=== PATIENT | female | born 1945 | race Caucasian/White ===

== ENCOUNTER → 2017-05-13 | Outpatient (REF) | payer MEDICARE, OTHER ==
[2017-05-13 15:41] LABS: CALCIUM LEVEL 9.5 MG/DL (8.8-10.2); CREATININE FOR GFR 0.98 MG/DL (0.55-1.02); GLOMERULAR FILTRATION RATE 59.4 (>39); POTASSIUM SERUM 3.7 MEQ/L (3.5-5.1)
== END ==
LOC: M LABDRAW1 11:30
PROVIDERS: ATTEND Internal Medicine Cardiovascular Disease
DX: I10 Essential (primary) hypertension (principal); E11.9 Type 2 diabetes mellitus without complications

== ENCOUNTER → 2018-07-17 | Outpatient (REF) | payer MEDICARE, OTHER ==
[2018-07-17 12:15] LABS: HEMATOCRIT 37.9 % (36.0-47.0); HEMOGLOBIN 12.6 g/dl (12.0-15.5); MEAN CORPUSCULAR HEMOGLOBIN 30.5 pg (27.0-33.0); MEAN CORPUSCULAR HGB CONC 33.2 g/dl (32.0-36.5); MEAN CORPUSCULAR VOLUME 91.8 fl (80.0-96.0); PLATELET COUNT, AUTOMATED 226 10^3/uL (150-450); RED BLOOD COUNT 4.13 10^6/uL (4.00-5.40); RED CELL DISTRIBUTION WIDTH 12.8 % (11.5-14.5); WHITE BLOOD COUNT 10.4 10^3/uL (4.0-10.0)
[2018-07-17 12:21] LABS: ANION GAP 8 MEQ/L (8-16); BLOOD UREA NITROGEN 23 MG/DL (7-18); CALCIUM LEVEL 9.3 MG/DL (8.8-10.2); CARBON DIOXIDE LEVEL 30 MEQ/L (21-32); CHLORIDE LEVEL 103 MEQ/L (98-107); CHOLESTEROL LEVEL 216 MG/DL (<200); CHOLESTEROL RISK RATIO 3.927 (<5); CREATININE FOR GFR 1.06 MG/DL (0.55-1.30); GLOMERULAR FILTRATION RATE 54.1 (>39); GLUCOSE, FASTING 121 MG/DL (70-100); HDL CHOLESTEROL 55 MG/DL (>40); LDL CHOLESTEROL 127.6 MG/DL (<100); NON-HDL-C 161 MG/DL; POTASSIUM SERUM 4.1 MEQ/L (3.5-5.1); SODIUM LEVEL 141 MEQ/L (136-145); TRIGLYCERIDES LEVEL 167 MG/DL (<150)
[2018-07-17 12:55] LABS: ESTIMATED AVERAGE GLUCOSE 126 MG/DL (60-110)
== END ==
LOC: M LABDRAW1 10:13
DX: I10 Essential (primary) hypertension (principal); I25.10 Atherosclerotic heart disease of native coronary artery without angina pectoris; E11.9 Type 2 diabetes mellitus without complications
CPT/HCPCS: 83036

== ENCOUNTER → 2020-10-07 | Outpatient (CLI) | payer MEDICARE, OTHER ==
[2020-10-07 13:57] LABS: BLOOD UREA NITROGEN 19 MG/DL (7-18); CALCIUM LEVEL 9.2 MG/DL (8.8-10.2); CARBON DIOXIDE LEVEL 31 MEQ/L (21-32); CHLORIDE LEVEL 102 MEQ/L (98-107); CREATININE FOR GFR 0.89 MG/DL (0.55-1.30); GLOMERULAR FILTRATION RATE > 60.0 (>39); GLUCOSE, FASTING 140 MG/DL (70-100); POTASSIUM SERUM 3.5 MEQ/L (3.5-5.1); SODIUM LEVEL 139 MEQ/L (136-145)
== END ==
LOC: M WUC 10:14
PROVIDERS: ATTEND Physician Assistant
DX: I10 Essential (primary) hypertension (principal)

== ENCOUNTER → 2020-10-24 | Outpatient (CLI) | payer MEDICARE, OTHER ==
[2020-10-24 16:58] LABS: CALCIUM LEVEL 9.1 MG/DL (8.8-10.2); CREATININE FOR GFR 1.01 MG/DL (0.55-1.30); GLOMERULAR FILTRATION RATE 56.7 (>39); POTASSIUM SERUM 3.6 MEQ/L (3.5-5.1)
== END ==
LOC: M WUC 14:07
PROVIDERS: ATTEND Physician Assistant
DX: I10 Essential (primary) hypertension (principal)

== ENCOUNTER → 2021-02-23 | Outpatient (CLI) | payer MEDICARE, OTHER ==
--- NOTE | 2021-02-23 16:00 | REP ---
INDICATION: CLAUDICATION. COMPARISON: None. TECHNIQUE: Bilateral lower extremity arterial Doppler ultrasound: FINDINGS: Ankle brachial indices could not be carried out due to patient inability to tolerate compression. Mild plaquing is seen bilaterally. Calcified vessels are noted throughout the lower extremities. Relatively high velocities are observed diffusely but no high-grade stenosis or occlusion is seen on either side. Biphasic arterial Doppler waveforms are noted throughout both lower extremity arteries. Right lower extremity arterial Doppler velocity chart: Right EVAPORATOR HELPER PSV 198 cm/S Profundal 187 Proximal SFA 179 Mid SFA 207 Distal SFA 184 Popliteal 90 Proximal LUCIEN 79 Tibial-peroneal trunk 102 Proximal BUSINESS MANAGER COLLEGE [employer] UNIVERSITY 113 Distal BUSINESS MANAGER COLLEGE OR UNIVERSITY 51 Distal LUCIEN 103 Left lower extremity arterial Doppler velocity chart: Left EVAPORATOR HELPER PSV 176 cm/S Profundal 183 Proximal SFA 170 Mid SFA 202 Distal SFA 179 Popliteal 95 Proximal LUCIEN 96 Tibial-peroneal trunk 67 Proximal BUSINESS MANAGER COLLEGE OR UNIVERSITY 47 Distal BUSINESS MANAGER COLLEGE OR UNIVERSITY 59 Distal LUCIEN 102 IMPRESSION: Moderate atherosclerotic changes. No high-grade stenosis or occlusion seen. <Electronically signed by Feliciano Hartley > 02/23/21 2728
== END ==
LOC: M RAD 13:33
PROVIDERS: ATTEND Physician Assistant
DX: I73.9 Peripheral vascular disease, unspecified (principal)

== ENCOUNTER → 2021-05-29 | Outpatient (CLI) | payer MEDICARE, OTHER ==
[2021-05-29 15:58] LABS: APPEARANCE, URINE CLOUDY (CLEAR); BACTERIA, URINE AUTO 3+ (NEGATIVE); BILIRUBIN, URINE AUTO NEGATIVE (NEGATIVE); BLOOD, URINE BLOOD NEGATIVE (NEGATIVE); COLOR, URINE YELLOW (YELLOW); GLUCOSE, URINE (UA) AUTO NEGATIVE (NEGATIVE); KETONE, URINE AUTO NEGATIVE (NEGATIVE); LEUKOCYTE ESTERASE, URINE AUTO 3+ (NEGATIVE); NITRITE, URINE AUTO POSITIVE (NEGATIVE); PROTEIN, URINE AUTO NEGATIVE (NEGATIVE); RBC, URINE AUTO 6 /HPF (0-3); SPECIFIC GRAVITY URINE AUTO 1.016 (1.002-1.035); SQUAMOUS EPITHELIAL CELL UR AU 2 /HPF (0-6); TRANSITIONAL EPITHELIAL AUTO 1 /HPF; UROBILINOGEN, URINE AUTO 0.2 mg/dL (0.0-2.0); WBC, URINE AUTO 63 /HPF (0-3)
[2021-05-29 16:02] LABS: BASO % 0.2 % (0.0-1.0); EOS # 0.2 10^3/uL (0.0-0.5); EOS % 1.6 % (0.0-3.0); HEMATOCRIT 39.6 % (36.0-47.0); HEMOGLOBIN 13.2 g/dl (12.0-15.5); LYMPH # 2.1 10^3/uL (1.5-5.0); LYMPH % 19.5 % (24.0-44.0); MEAN CORPUSCULAR HEMOGLOBIN 30.8 pg (27.0-33.0); MEAN CORPUSCULAR HGB CONC 33.3 g/dl (32.0-36.5); MEAN CORPUSCULAR VOLUME 92.5 fl (80.0-96.0); MONO # 0.8 10^3/uL (0.0-0.8); MONO % 7.4 % (2.0-8.0); NEUTROPHILS # 7.7 10^3/uL (1.5-8.5); NEUTROPHILS % 70.8 % (36.0-66.0); PLATELET COUNT, AUTOMATED 205 10^3/uL (150-450); RED BLOOD COUNT 4.28 10^6/uL (4.00-5.40); WHITE BLOOD COUNT 10.9 10^3/uL (4.0-10.0)
[2021-05-29 16:26] LABS: HEMOGLOBIN A1c 6.5 %
[2021-05-29 16:39] LABS: ALBUMIN 4.2 GM/DL (3.2-5.2); BILIRUBIN,TOTAL 0.6 MG/DL (0.2-1.0); CALCIUM LEVEL 8.5 MG/DL (8.8-10.2); CHOLESTEROL RISK RATIO 1.565 (<5); CREATININE FOR GFR 1.09 MG/DL (0.55-1.30); MAU/CREAT RATIO 14.5 MCG/MG (0.0-30.0); POTASSIUM SERUM 3.9 MEQ/L (3.5-5.1); THYROID STIMULATING HORMONE 1.5 uIU/ML (0.358-3.740); THYROXINE (T4) 8.5 UG/DL (4.5-12.0); TOTAL 25(OH) VITAMIN D 26.3 NG/ML (30.0-100.0); TOTAL PROTEIN 7.5 GM/DL (6.4-8.2); URIC ACID 6.5 MG/DL (2.6-6.0)
[2021-05-31 16:08] LABS: Lyme Disease IgG/IgM Antibodie <0.91 ISR (0.00-0.90); Lyme Disease IgM Ab Quantitati <0.80 index (0.00-0.79)
== END ==
LOC: M WUC 13:52
PROVIDERS: ATTEND Family Medicine
DX: I10 Essential (primary) hypertension (principal); E78.5 Hyperlipidemia, unspecified; E11.40 Type 2 diabetes mellitus with diabetic neuropathy, unspecified; M51.36 Other intervertebral disc degeneration, lumbar region; M50.00 Cervical disc disorder with myelopathy, unspecified cervical region; Z79.899 Other long term (current) drug therapy

== ENCOUNTER → 2022-02-09 | Outpatient (CLI) | payer MEDICARE, OTHER ==
[2022-02-09 13:50] LABS: BASO % 0.4 % (0.0-1.0); EOS # 0.2 10^3/uL (0.0-0.5); EOS % 2.9 % (0.0-3.0); HEMATOCRIT 33.1 % (36.0-47.0); LYMPH # 1.9 10^3/uL (1.5-5.0); LYMPH % 25.2 % (24.0-44.0); MEAN CORPUSCULAR HEMOGLOBIN 30.5 pg (27.0-33.0); MEAN CORPUSCULAR HGB CONC 33.2 g/dl (32.0-36.5); MEAN CORPUSCULAR VOLUME 91.7 fl (80.0-96.0); MONO # 0.5 10^3/uL (0.0-0.8); NEUTROPHILS # 4.9 10^3/uL (1.5-8.5); PLATELET COUNT, AUTOMATED 229 10^3/uL (150-450); RED BLOOD COUNT 3.61 10^6/uL (4.00-5.40); WHITE BLOOD COUNT 7.7 10^3/uL (4.0-10.0)
[2022-02-09 13:58] LABS: APPEARANCE, URINE HAZY (CLEAR); BACTERIA, URINE AUTO 2+ (NEGATIVE); BILIRUBIN, URINE AUTO NEGATIVE (NEGATIVE); BLOOD, URINE BLOOD NEGATIVE (NEGATIVE); COLOR, URINE YELLOW (YELLOW); GLUCOSE, URINE (UA) AUTO NEGATIVE (NEGATIVE); KETONE, URINE AUTO NEGATIVE (NEGATIVE); LEUKOCYTE ESTERASE, URINE AUTO 2+ (NEGATIVE); MUCUS, URINE SMALL (NEGATIVE); NITRITE, URINE AUTO NEGATIVE (NEGATIVE); PROTEIN, URINE AUTO NEGATIVE (NEGATIVE); RBC, URINE AUTO 1 /HPF (0-3); SPECIFIC GRAVITY URINE AUTO 1.016 (1.002-1.035); SQUAMOUS EPITHELIAL CELL UR AU 1 /HPF (0-6); UROBILINOGEN, URINE AUTO 0.2 mg/dL (0.0-2.0); WBC, URINE AUTO 26 /HPF (0-3)
[2022-02-09 14:13] LABS: ALBUMIN 3.5 GM/DL (3.2-5.2); ALT/SGPT 35 U/L (12-78); BILIRUBIN,TOTAL 0.4 MG/DL (0.2-1.0); BLOOD UREA NITROGEN 29 MG/DL (7-18); CALCIUM LEVEL 8.7 MG/DL (8.8-10.2); CARBON DIOXIDE LEVEL 29 MEQ/L (21-32); CHLORIDE LEVEL 105 MEQ/L (98-107); CHOLESTEROL LEVEL 112 MG/DL (<200); CHOLESTEROL RISK RATIO 2.074 (<5); CREATININE FOR GFR 1.25 MG/DL (0.55-1.30); FREE T4 0.95 NG/DL (0.76-1.46); GLOMERULAR FILTRATION RATE 44.2 (>39); GLUCOSE, FASTING 137 MG/DL (70-100); HDL CHOLESTEROL 54 MG/DL (>40); LDL CHOLESTEROL 28 MG/DL (<100); NON-HDL-C 58 MG/DL; POTASSIUM SERUM 3.5 MEQ/L (3.5-5.1); SODIUM LEVEL 140 MEQ/L (136-145); TOTAL PROTEIN 6.7 GM/DL (6.4-8.2); TRIGLYCERIDES LEVEL 149 MG/DL (<150)
[2022-02-09 14:20] LABS: MALB URINE SIEMENS 31.4 MG/L; MAU/CREAT RATIO 18.9 MCG/MG (0.0-30.0)
[2022-02-09 14:21] LABS: TOTAL 25(OH) VITAMIN D 89.4 NG/ML (30.0-100.0)
[2022-02-09 14:22] LABS: VITAMIN B12 LEVEL > 2000 PG/ML
[2022-02-09 14:23] LABS: FOLATE 9.7 NG/ML
[2022-02-13 09:47] LABS: ALBUMIN 3.75 GM/DL (3.29-5.55); ALBUMIN % 55.9 % (55.8-66.1); ALPHA-1-GLOBULIN % 4.9 % (2.9-4.9); ALPHA-1-GLOBULINS 0.33 GM/DL (0.17-0.41); ALPHA-2-GLOBULINS 0.78 GM/DL (0.42-0.99); ALPHA-2-GLOBULINS % 11.7 % (7.1-11.8); BETA-1-GLOBULINS 0.46 GM/DL (0.28-0.60); BETA-1-GLOBULINS % 6.8 % (4.7-7.2)
[2022-02-13 09:48] LABS: GAMMA GLOBULIN % 14.7 % (11.1-18.8); GAMMA GLOBULINS 0.98 GM/DL (0.65-1.58)
== END ==
LOC: M WUC 09:45
PROVIDERS: ATTEND Family Medicine
DX: I10 Essential (primary) hypertension (principal); E78.5 Hyperlipidemia, unspecified; E11.40 Type 2 diabetes mellitus with diabetic neuropathy, unspecified; M51.36 Other intervertebral disc degeneration, lumbar region; R53.83 Other fatigue; Z79.899 Other long term (current) drug therapy

== ENCOUNTER 2022-06-26 13:59 | Emergency (ER) | payer MEDICARE, OTHER ==
[~2022-06-26] VITALS: Ht 154.9 cm; Wt 90.0 kg
[2022-06-26] MEDS ORDERED: GABA-1171 (15:01)
[2022-06-26] MEDS ORDERED: SPIR-10 (15:01)
[2022-06-26] MEDS ORDERED: LOSA100T45 (15:01)
[2022-06-26] MEDS ORDERED: FELO10TA28 (15:01)
[2022-06-26] MEDS ORDERED: DULO1CAP6 (15:01)
[2022-06-26] MEDS ORDERED: ZOLO100T (15:01)
[2022-06-26] MEDS ORDERED: ACET1TAB55 (15:01)
[2022-06-26] MEDS ORDERED: ASPI81TA26 (15:01)
[2022-06-26] MEDS ORDERED: REPA140I2 (15:01)
[2022-06-26] MEDS ORDERED: VITA1CAP25 (15:01)
[2022-06-26] MEDS ORDERED: ARIP1TAB4 (15:01)
[2022-06-26] MEDS ORDERED: EZET10TA21 (15:01)
[2022-06-26] MEDS ORDERED: BUTR20DI TOP (15:01)
[2022-06-26] MEDS ORDERED: TIZA10TA (15:01)
[2022-06-26] MEDS ORDERED: JANU100T (15:01)
[2022-06-26] MEDS ORDERED: ALEN70TA82 (15:01)
[2022-06-26] MEDS ORDERED: LIDOCAINE 5% (LIDODERM) PATCH TD ONE (16:40)
[2022-06-26] MEDS ORDERED: methocarbamoL 750 MG TAB PO ONE (16:40)
[2022-06-26 18:36] VITALS: BP 145/67
[2022-06-26] MEDS ORDERED: CAPS0.022 TOP (18:40)
[2022-06-26] MEDS ORDERED: METH-1165 PO (18:40)
[2022-06-26] MEDS ORDERED: ANEC4CRE3 TOP (18:40)
[2022-06-26] MEDS ORDERED: **NOTE PATIENT COMMENT** MISC XX SCH (21:00)
== END 2022-06-26 18:56 | disposition home or self-care (01) ==
LOC: M ED 13:59
DX: M79.652 Pain in left thigh (principal); Z96.652 Presence of left artificial knee joint; G89.29 Other chronic pain; M54.50 Low back pain, unspecified; M16.12 Unilateral primary osteoarthritis, left hip; E11.9 Type 2 diabetes mellitus without complications; I10 Essential (primary) hypertension; E78.5 Hyperlipidemia, unspecified; Z90.710 Acquired absence of both cervix and uterus; F17.200 Nicotine dependence, unspecified, uncomplicated; Z88.0 Allergy status to penicillin; Z88.6 Allergy status to analgesic agent; Z88.8 Allergy status to other drugs, medicaments and biological substances; Z79.899 Other long term (current) drug therapy; Z79.82 Long term (current) use of aspirin

== ENCOUNTER → 2022-11-15 | Outpatient (CLI) | payer MEDICARE, OTHER ==
[~2022-11-15] MED LIST: ACET1TAB55; ALEN70TA82; ANEC4CRE3 TOP; ARIP1TAB4; ASPI81TA26; BUTR20DI TOP; CAPS0.022 TOP; DULO1CAP6; EZET10TA21; FELO10TA28; GABA-1171; JANU100T; LOSA100T45; METH-1165 PO; REPA140I2; SPIR-10; TIZA10TA; VITA1CAP25; ZOLO100T
[2022-11-15 13:24] LABS: BASO % 0.3 % (0.0-1.0); EOS # 0.2 10^3/uL (0.0-0.5); EOS % 1.2 % (0.0-3.0); HEMATOCRIT 38.8 % (36.0-47.0); HEMOGLOBIN 12.5 g/dl (12.0-15.5); LYMPH # 2.4 10^3/uL (1.5-5.0); LYMPH % 17.7 % (24.0-44.0); MEAN CORPUSCULAR HGB CONC 32.2 g/dl (32.0-36.5); MONO # 1.1 10^3/uL (0.0-0.8); MONO % 7.8 % (2.0-8.0); NEUTROPHILS % 72.5 % (36.0-66.0); PLATELET COUNT, AUTOMATED 231 10^3/uL (150-450); RED BLOOD COUNT 4.17 10^6/uL (4.00-5.40); WHITE BLOOD COUNT 13.8 10^3/uL (4.0-10.0)
[2022-11-15 13:36] LABS: APPEARANCE, URINE MANUAL HAZY (CLEAR); COLOR, URINE MANUAL YELLOW (YELLOW)
[2022-11-15 13:39] LABS: BILIRUBIN, URINE MANUAL NEGATIVE (NEGATIVE); BLOOD URINE MANUAL NEGATIVE (NEGATIVE); GLUCOSE, URINE (UA) MANUAL NEGATIVE (NEGATIVE); KETONE, URINE MANUAL NEGATIVE (NEGATIVE); LEUKOCYTE ESTERASE, URINE MAN POSITIVE (NEGATIVE); NITRITE, URINE MANUAL POSITIVE (NEGATIVE); PROTEIN, URINE MANUAL NEGATIVE (NEGATIVE); UROBILINOGEN, URINE MANUAL NORMAL (NORMAL)
[2022-11-15 13:45] LABS: URIC ACID 7.8 MG/DL (3.1-7.8)
[2022-11-15 13:48] LABS: ALBUMIN 3.8 G/DL (3.2-5.2); BILIRUBIN,TOTAL 0.6 MG/DL (0.3-1.2); CALCIUM LEVEL 9.4 MG/DL (8.3-10.6); CHOLESTEROL RISK RATIO 2.43 (<5); CREATININE FOR GFR 1.29 MG/DL (0.55-1.30); GLOMERULAR FILTRATION RATE 42.6 (>39); HDL CHOLESTEROL 61.7 MG/DL (>40); LDL CHOLESTEROL 52.3 MG/DL (<100); POTASSIUM SERUM 3.5 MMOL/L (3.5-5.1); TOTAL PROTEIN 7.3 G/DL (5.7-8.2)
[2022-11-15 13:49] LABS: FREE T4 1.05 NG/DL (0.89-1.76)
[2022-11-15 13:51] LABS: TOTAL 25(OH) VITAMIN D 78.2 NG/ML (20.0-100.0)
[2022-11-15 14:01] LABS: BACTERIA, URINE LARGE AMOUNT; HYALINE CAST, URINE NONE SEEN /lpf (0-1); SQUAMOUS EPITHELIAL CELL URINE LARGE AMOUNT /hpf (SMALL AMT); WBC, URINE 20-30 /hpf (0-3)
[2022-11-15 14:09] LABS: HEMOGLOBIN A1c 6.8 % (4.0-6.0)
== END ==
LOC: M WUC 10:12
PROVIDERS: ATTEND Family Medicine
DX: E78.5 Hyperlipidemia, unspecified (principal); I10 Essential (primary) hypertension; E11.40 Type 2 diabetes mellitus with diabetic neuropathy, unspecified; M51.36 Other intervertebral disc degeneration, lumbar region; Z79.899 Other long term (current) drug therapy

== ENCOUNTER → 2023-01-14 | Outpatient (CLI) | payer MEDICARE, OTHER ==
[2023-01-14 15:45] LABS: ALBUMIN 3.6 G/DL (3.2-5.2); BILIRUBIN,TOTAL 0.5 MG/DL (0.3-1.2); CALCIUM LEVEL 9.1 MG/DL (8.3-10.6); CREATININE FOR GFR 1.39 MG/DL (0.55-1.30); POTASSIUM SERUM 3.9 MMOL/L (3.5-5.1); TOTAL PROTEIN 6.7 G/DL (5.7-8.2)
== END ==
LOC: M LAB 14:04
PROVIDERS: ATTEND Family Medicine
DX: B96.81 Helicobacter pylori [H. pylori] as the cause of diseases classified elsewhere (principal); R63.4 Abnormal weight loss

== ENCOUNTER → 2023-01-21 | Outpatient (REF) | payer MEDICARE, OTHER | LOC: M LAB REF 12:16 | PROVIDERS: ATTEND Family Medicine | DX: R63.4 Abnormal weight loss (principal); B96.81 Helicobacter pylori [H. pylori] as the cause of diseases classified elsewhere ==

== ENCOUNTER → 2023-01-21 | Outpatient (CLI) | payer MEDICARE, OTHER ==
[2023-01-21 19:20] LABS: THYROID STIMULATING HORMONE 2.305 uIU/ML (0.55-4.78)
[2023-01-21 19:29] LABS: FOLATE > 24.00 NG/ML (>5.4)
[2023-01-21 19:30] LABS: VITAMIN B12 LEVEL > 2000 PG/ML (211-911)
== END ==
LOC: M WUC 11:24
PROVIDERS: ATTEND Psychiatry & Neurology Neurology
DX: E51.9 Thiamine deficiency, unspecified (principal); E53.8 Deficiency of other specified B group vitamins; E03.9 Hypothyroidism, unspecified; R42 Dizziness and giddiness

== ENCOUNTER → 2023-01-21 | Outpatient (CLI) | payer MEDICARE, OTHER | LOC: M WUC 11:20 | PROVIDERS: ATTEND Internal Medicine | DX: R70.0 Elevated erythrocyte sedimentation rate (principal); R79.82 Elevated C-reactive protein (CRP) ==

== ENCOUNTER → 2023-01-23 | Outpatient (CLI) | payer MEDICARE, OTHER | LOC: M PLAIMG 11:05 | PROVIDERS: ATTEND Psychiatry & Neurology Neurology | DX: R42 Dizziness and giddiness (principal); R55 Syncope and collapse ==

== ENCOUNTER → 2023-02-25 | Outpatient (CLI) | payer MEDICARE, OTHER ==
[~2023-02-25] MED LIST changes: -ACET1TAB55; +ACET1TAB55 PO; -ALEN70TA82; +ALEN70TA82 PO; -ARIP1TAB4; +ARIP1TAB4 PO; -ASPI81TA26; +ASPI81TA26 PO; +B-12100010 PO; +BACL10TA2 PO; +CHLO125TA PO; +COLA100C5 PO; -DULO1CAP6; +DULO1CAP6 PO; -EZET10TA21; +EZET10TA21 PO; -FELO10TA28; +FELO10TA28 PO; +FOLI1TAB11 PO; -GABA-1171; +GABA-1171 PO; -JANU100T; +JANU100T PO; +LASI20TA3 PO; -LOSA100T45; +LOSA100T45 PO; +MELO7.5T35 PO; -SPIR-10; +SPIR-10 PO; -TIZA10TA; +TIZA10TA PO; -VITA1CAP25; +VITA1CAP25 PO; +VITA200T8 PO; -ZOLO100T; +ZOLO100T PO
== END ==
LOC: M LABSMTC 09:42
PROVIDERS: ATTEND Anesthesiology
DX: Z20.822 Contact with and (suspected) exposure to COVID-19 (principal)

== ENCOUNTER 2023-02-28 06:55 | Day surgery (SDC) | payer MEDICARE, OTHER ==
[~2023-02-28] VITALS: Ht 154.9 cm; Wt 83.2 kg
[~2023-02-28 06:55] MED LIST changes: +NS 1,000 ML IV ONE
[2023-02-28] MEDS ORDERED: LIDOCAINE 2% 100MG/5ML SDV (FOR ANES.) As Ordered ONE (08:22)
[2023-02-28] MEDS ORDERED: propofoL 500 MG/50 ML VIAL As Ordered ONE (08:22)
[2023-02-28] MEDS ORDERED: fentaNYL 100 MCG/2 ML INJECTION As Ordered ONE (08:22)
[2023-02-28 09:25] VITALS: BP 143/65
== END 2023-02-28 09:50 | disposition home or self-care (01) ==
LOC: M OPP 06:55
PROVIDERS: ATTEND Surgery
DX: K52.9 Noninfective gastroenteritis and colitis, unspecified (principal); D12.6 Benign neoplasm of colon, unspecified; K62.89 Other specified diseases of anus and rectum; Z86.010 Personal history of colon polyps; K44.9 Diaphragmatic hernia without obstruction or gangrene; K29.80 Duodenitis without bleeding; K21.00 Gastro-esophageal reflux disease with esophagitis, without bleeding; K29.70 Gastritis, unspecified, without bleeding; I25.10 Atherosclerotic heart disease of native coronary artery without angina pectoris; I65.23 Occlusion and stenosis of bilateral carotid arteries; E11.59 Type 2 diabetes mellitus with other circulatory complications; E78.00 Pure hypercholesterolemia, unspecified; Z79.82 Long term (current) use of aspirin; Z79.84 Long term (current) use of oral hypoglycemic drugs; Z79.891 Long term (current) use of opiate analgesic; Z79.899 Other long term (current) drug therapy; Z88.0 Allergy status to penicillin; Z88.2 Allergy status to sulfonamides; Z88.5 Allergy status to narcotic agent; Z88.6 Allergy status to analgesic agent; Z96.82 Presence of neurostimulator
CPT/HCPCS: 43239; 45380; 88305; J3010

== ENCOUNTER → 2023-08-08 | Outpatient (CLI) | payer MEDICARE, OTHER ==
[~2023-08-08] MED LIST changes: -LOSA100T45 PO; +LOSA100T46 PO; -NS 1,000 ML IV ONE
== END ==
LOC: M PLAIMG 12:51
PROVIDERS: ATTEND Pain Medicine Interventional Pain Medicine
DX: M48.061 Spinal stenosis, lumbar region without neurogenic claudication (principal); M47.896 Other spondylosis, lumbar region

== ENCOUNTER → 2023-09-17 | Outpatient (CLI) | payer MEDICARE, OTHER | LOC: M WUC 10:31 | PROVIDERS: ATTEND Internal Medicine | DX: M25.511 Pain in right shoulder (principal); M25.512 Pain in left shoulder ==

== ENCOUNTER → 2023-10-04 | Outpatient (CLI) | payer MEDICARE, OTHER | LOC: M RAD 15:17 | PROVIDERS: ATTEND Physician Assistant | DX: I65.23 Occlusion and stenosis of bilateral carotid arteries (principal) ==

== ENCOUNTER 2023-11-01 15:28 | Inpatient (IN) | payer MEDICARE, OTHER ==
[~2023-11-01] VITALS: Ht 154.9 cm; Wt 90.0 kg
[~2023-11-01 15:28] MED LIST changes: -REPA140I2; +REPA140I2 INJ
[2023-11-01 17:24] LABS: BASO # 0.1 10^3/uL (0.0-0.2); BASO % 0.4 % (0.0-1.0); EOS # 0.4 10^3/uL (0.0-0.5); HEMOGLOBIN 10.9 g/dl (12.0-15.5); LYMPH # 2.1 10^3/uL (1.5-5.0); LYMPH % 17.1 % (24.0-44.0); MEAN CORPUSCULAR HEMOGLOBIN 32.1 pg (27.0-33.0); MEAN CORPUSCULAR VOLUME 97.1 fl (80.0-96.0); MONO # 0.9 10^3/uL (0.0-0.8); MONO % 7.3 % (2.0-8.0); NEUTROPHILS # 8.7 10^3/uL (1.5-8.5); NEUTROPHILS % 71.4 % (36.0-66.0); PLATELET COUNT, AUTOMATED 272 10^3/uL (150-450); WHITE BLOOD COUNT 12.2 10^3/uL (4.0-10.0)
[2023-11-01 17:40] LABS: ALBUMIN 3.4 G/DL (3.2-5.2); BILIRUBIN,DIRECT 0.1 MG/DL (<0.4); BILIRUBIN,TOTAL 0.4 MG/DL (0.3-1.2); CALCIUM LEVEL 9.8 MG/DL (8.3-10.6); CREATININE FOR GFR 2.01 MG/DL (0.55-1.30); GLOMERULAR FILTRATION RATE 25.4 (>39); POTASSIUM SERUM 4.2 MMOL/L (3.5-5.1)
[2023-11-01 17:42] LABS: THYROID STIMULATING HORMONE 2.277 uIU/ML (0.55-4.78)
[2023-11-01 19:12] LABS: VENOUS BASE EXCESS 0.3 (-2.0-2.0); VENOUS HCO3 26.7 MMOL/L (23.0-27.0); VENOUS O2 SATURATION 53.4 % (60.0-80.0); VENOUS PARTIAL PRESSURE CO2 51.4 mmHg (38.0-50.0); VENOUS PH 7.334 UNITS (7.330-7.430); VENOUS STANDARD HCO3 23.9 MMOL/L; VENOUS TOTAL CO2 28.3 MMOL/L (24.0-28.0)
[2023-11-01] MEDS ORDERED: NS 500 ML IV ONE (20:50)
[2023-11-01] MEDS ORDERED: cefTRIAXone SOD 1 GM in D5W MINI-BAG PLUS 50 ML IV ONE (20:50)
[2023-11-01] MEDS ORDERED: GABA-1171 PO (22:09)
[2023-11-01] MEDS ORDERED: HOME MED LIST COMPLETE! XX SCH (22:10)
[2023-11-02] VITALS (7 sets, daily range): BP systolic 132–164; BP diastolic 60–74; TEMP 97–98.2; O2SAT 96–97
[2023-11-02] MEDS ORDERED: NS 1,000 ML IV SCH (00:30)
[2023-11-02] MEDS ORDERED: DOCUSATE SODIUM 100MG CAPSULE PO PRN (00:35)
[2023-11-02] MEDS: ACETAMINOPHEN 500 MG TAB PO PRN ×2 (05:13→21:27)
[2023-11-02 07:04] LABS: HEMATOCRIT 30.3 % (36.0-47.0); HEMOGLOBIN 10.4 g/dl (12.0-15.5); MEAN CORPUSCULAR HEMOGLOBIN 32.6 pg (27.0-33.0); MEAN CORPUSCULAR HGB CONC 34.3 g/dl (32.0-36.5); PLATELET COUNT, AUTOMATED 219 10^3/uL (150-450); RED BLOOD COUNT 3.19 10^6/uL (4.00-5.40); WHITE BLOOD COUNT 11.3 10^3/uL (4.0-10.0)
[2023-11-02 07:53] LABS: CALCIUM LEVEL 9.3 MG/DL (8.3-10.6); CREATININE FOR GFR 1.63 MG/DL (0.55-1.30); GLOMERULAR FILTRATION RATE 32.4 (>39); POTASSIUM SERUM 3.7 MMOL/L (3.5-5.1)
[2023-11-02] MEDS: CYANOCOBALAMIN 500 MCG TAB PO SCH (08:41)
[2023-11-02] MEDS: DULoxetine 30MG CAPSULE (CYMBALTA) PO SCH (08:42)
[2023-11-02] MEDS: FOLIC ACID 1MG TAB PO SCH (08:42)
[2023-11-02] MEDS: SITagliptin 50 MG TAB (JANUVIA) PO SCH (08:42)
[2023-11-02] MEDS: ASPIRIN 81MG ENTERIC TABLET PO SCH (08:42)
[2023-11-02] MEDS: amLODIPine 5 MG TAB PO SCH ×2 (11:03→21:26)
[2023-11-02 11:40] LABS: CALCIUM LEVEL 9.5 MG/DL (8.3-10.6); CREATININE FOR GFR 1.56 MG/DL (0.55-1.30); GLOMERULAR FILTRATION RATE 34.1 (>39); POTASSIUM SERUM 3.9 MMOL/L (3.5-5.1)
[2023-11-02] MEDS ORDERED: GABAPENTIN 300 MG CAP PO SCH (21:00)
[2023-11-02] MEDS ORDERED: cefTRIAXone SOD 1 GM in D5W MINI-BAG PLUS 50 ML IV SCH (22:00)
[2023-11-02] MEDS ORDERED: PILL CUTTER 1 EACH XX PRN (23:45)
[2023-11-03] MEDS: oxyCODONE 5MG TAB PO PRN ×2 (00:31→20:22)
[2023-11-03 06:00] VITALS: BP 168/74; TEMP 96.3; O2SAT 95
[2023-11-03 07:17] VITALS: BP_SYST 151; BP_SYST 155; BP_SYST 160; BP_DIAS 58; BP_DIAS 69; BP_DIAS 72
[2023-11-03] MEDS ORDERED: NS 1,000 ML IV SCH (07:50)
[2023-11-03] MEDS ORDERED: AMLO10TA PO (07:59)
[2023-11-03] MEDS ORDERED: CEPH500C PO (07:59)
[2023-11-03] MEDS ORDERED: ISOS10TA3 PO (08:03)
[2023-11-03 08:16] LABS: BASO % 0.3 % (0.0-1.0); EOS # 0.4 10^3/uL (0.0-0.5); HEMOGLOBIN 10.5 g/dl (12.0-15.5); LYMPH # 2.5 10^3/uL (1.5-5.0); LYMPH % 27.7 % (24.0-44.0); MEAN CORPUSCULAR HEMOGLOBIN 32.2 pg (27.0-33.0); MEAN CORPUSCULAR HGB CONC 33.9 g/dl (32.0-36.5); MEAN CORPUSCULAR VOLUME 95.1 fl (80.0-96.0); MONO # 0.9 10^3/uL (0.0-0.8); MONO % 9.7 % (2.0-8.0); NEUTROPHILS # 5.1 10^3/uL (1.5-8.5); NEUTROPHILS % 57.4 % (36.0-66.0); PLATELET COUNT, AUTOMATED 220 10^3/uL (150-450); RED BLOOD COUNT 3.26 10^6/uL (4.00-5.40); WHITE BLOOD COUNT 8.9 10^3/uL (4.0-10.0)
[2023-11-03 08:43] LABS: CREATININE FOR GFR 1.24 MG/DL (0.55-1.30); GLOMERULAR FILTRATION RATE 44.4 (>39); POTASSIUM SERUM 3.6 MMOL/L (3.5-5.1)
[2023-11-03] MEDS: DULoxetine 30MG CAPSULE (CYMBALTA) PO SCH (08:45)
[2023-11-03] MEDS: FOLIC ACID 1MG TAB PO SCH (08:45)
[2023-11-03] MEDS: GABAPENTIN 300 MG CAP PO SCH ×2 (08:45→20:21)
[2023-11-03] MEDS: CYANOCOBALAMIN 500 MCG TAB PO SCH (08:45)
[2023-11-03] MEDS: SITagliptin 50 MG TAB (JANUVIA) PO SCH (08:45)
[2023-11-03] MEDS: ASPIRIN 81MG ENTERIC TABLET PO SCH (08:45)
[2023-11-03] MEDS: ISOSORBIDE DIN (ISORDIL) 10MG TAB PO SCH ×2 (09:33→20:22)
[2023-11-03] MEDS ORDERED: CLONI1TA PO (10:55)
[2023-11-03] MEDS ORDERED: cloNIDine 0.2 MG TAB PO ONE (10:55)
[2023-11-03] MEDS ORDERED: NS 500 ML IV ONE (10:55)
[2023-11-03] MEDS ORDERED: cefTRIAXone SOD 1 GM in D5W MINI-BAG PLUS 50 ML IV ONE (14:00)
[2023-11-03 14:05] VITALS: BP 154/69; TEMP 97.2; O2SAT 93
[2023-11-03] MEDS ORDERED: SODIUM CHLORIDE 0.9% 500 ML IV ONE (14:05)
[2023-11-03 20:12] VITALS: BP 168/70; TEMP 98.9; O2SAT 94
[2023-11-04 06:00] VITALS: BP 168/70; TEMP 98.9; O2SAT 94
[2023-11-04] MEDS: ASPIRIN 81MG ENTERIC TABLET PO SCH (08:28)
[2023-11-04] MEDS: SITagliptin 50 MG TAB (JANUVIA) PO SCH (08:28)
[2023-11-04 08:29] VITALS: BP 148/67
[2023-11-04] MEDS: CYANOCOBALAMIN 500 MCG TAB PO SCH (08:29)
[2023-11-04] MEDS: ISOSORBIDE DIN (ISORDIL) 10MG TAB PO SCH (08:29)
[2023-11-04] MEDS: DULoxetine 30MG CAPSULE (CYMBALTA) PO SCH (08:29)
[2023-11-04] MEDS: FOLIC ACID 1MG TAB PO SCH (08:29)
[2023-11-04] MEDS: GABAPENTIN 300 MG CAP PO SCH (08:29)
[2023-11-04] MEDS ORDERED: OXYC-517 PO (09:58)
[2023-11-04 10:02] LABS: BASO % 0.3 % (0.0-1.0); EOS # 0.4 10^3/uL (0.0-0.5); EOS % 3.6 % (0.0-3.0); HEMATOCRIT 30.9 % (36.0-47.0); HEMOGLOBIN 10.6 g/dl (12.0-15.5); LYMPH # 2.1 10^3/uL (1.5-5.0); LYMPH % 21.3 % (24.0-44.0); MEAN CORPUSCULAR HEMOGLOBIN 32.5 pg (27.0-33.0); MEAN CORPUSCULAR HGB CONC 34.3 g/dl (32.0-36.5); MEAN CORPUSCULAR VOLUME 94.8 fl (80.0-96.0); MONO # 0.8 10^3/uL (0.0-0.8); NEUTROPHILS # 6.6 10^3/uL (1.5-8.5); NEUTROPHILS % 66.1 % (36.0-66.0); PLATELET COUNT, AUTOMATED 225 10^3/uL (150-450); RED BLOOD COUNT 3.26 10^6/uL (4.00-5.40); WHITE BLOOD COUNT 9.9 10^3/uL (4.0-10.0)
[2023-11-04 10:28] LABS: CALCIUM LEVEL 8.8 MG/DL (8.3-10.6); CREATININE FOR GFR 1.12 MG/DL (0.55-1.30); POTASSIUM SERUM 3.8 MMOL/L (3.5-5.1)
== END 2023-11-04 11:50 | disposition home or self-care (01) | DRG 683 ==
LOC: M ED 15:28 → M ED INP 20:53 → M MS4PR 11-02 02:08
PROVIDERS: ADMIT Internal Medicine Nephrology; ATTEND General Practice
DX: N17.9 Acute kidney failure, unspecified (principal); E87.20 Acidosis, unspecified; N39.0 Urinary tract infection, site not specified; R55 Syncope and collapse; I12.9 Hypertensive chronic kidney disease with stage 1 through stage 4 chronic kidney disease, or unspecified chronic kidney disease; E78.5 Hyperlipidemia, unspecified; E66.9 Obesity, unspecified; N18.30 Chronic kidney disease, stage 3 unspecified; F41.9 Anxiety disorder, unspecified; I65.23 Occlusion and stenosis of bilateral carotid arteries; I25.10 Atherosclerotic heart disease of native coronary artery without angina pectoris; E11.51 Type 2 diabetes mellitus with diabetic peripheral angiopathy without gangrene; E11.40 Type 2 diabetes mellitus with diabetic neuropathy, unspecified; M81.0 Age-related osteoporosis without current pathological fracture; M15.9 Polyosteoarthritis, unspecified; M75.31 Calcific tendinitis of right shoulder; M75.32 Calcific tendinitis of left shoulder; E86.0 Dehydration; Z88.0 Allergy status to penicillin; Z88.5 Allergy status to narcotic agent; Z88.8 Allergy status to other drugs, medicaments and biological substances; Z79.899 Other long term (current) drug therapy

== ENCOUNTER → 2023-12-20 | Outpatient (REF) | payer MEDICARE, OTHER ==
[~2023-12-20] MED LIST changes: +AMLO10TA PO; +CEPH500C PO; +CLONI1TA PO; +ISOS10TA3 PO; +OXYC-517 PO
[2023-12-20 13:58] LABS: CALCIUM LEVEL 8.7 MG/DL (8.3-10.6); CREATININE FOR GFR 1.23 MG/DL (0.55-1.30); GLOMERULAR FILTRATION RATE 44.8 (>39); POTASSIUM SERUM 4.2 MMOL/L (3.5-5.1)
== END ==
LOC: M LABWUC 12:15
PROVIDERS: ATTEND Physician Assistant
DX: I10 Essential (primary) hypertension (principal)

== ENCOUNTER → 2024-01-10 | Outpatient (CLI) | payer MEDICARE, OTHER | LOC: M RAD 10:04 | PROVIDERS: ATTEND Physician Assistant | DX: I73.9 Peripheral vascular disease, unspecified (principal); I25.84 Coronary atherosclerosis due to calcified coronary lesion ==

== ENCOUNTER → 2024-02-10 | Outpatient (REF) | payer MEDICARE, OTHER ==
[2024-02-10 19:04] LABS: CREATININE,RANDOM URINE 32.5 MG/DL
[2024-02-10 19:15] LABS: TOTAL PROTEIN,RANDOM URINE < 6.0 MG/DL (0.0-14.0)
== END ==
LOC: M LAB REF 17:33
PROVIDERS: ATTEND Internal Medicine Nephrology
DX: R80.9 Proteinuria, unspecified (principal)

== ENCOUNTER → 2024-02-26 | Outpatient (CLI) | payer MEDICARE, OTHER ==
[2024-02-26 13:09] LABS: APPEARANCE, URINE CLOUDY (CLEAR); BACTERIA, URINE AUTO 2+ (NEGATIVE); BILIRUBIN, URINE AUTO NEGATIVE (NEGATIVE); BLOOD, URINE BLOOD NEGATIVE (NEGATIVE); COLOR, URINE YELLOW (YELLOW); GLUCOSE, URINE (UA) AUTO NEGATIVE (NEGATIVE); KETONE, URINE AUTO NEGATIVE (NEGATIVE); LEUKOCYTE ESTERASE, URINE AUTO 3+ (NEGATIVE); MUCUS, URINE SMALL (NEGATIVE); NITRITE, URINE AUTO POSITIVE (NEGATIVE); PROTEIN, URINE AUTO 1+ mg/dL (NEGATIVE); RBC, URINE AUTO 1 /HPF (0-3); SPECIFIC GRAVITY URINE AUTO 1.016 (1.002-1.035); SQUAMOUS EPITHELIAL CELL UR AU 11 /HPF (0-6); UROBILINOGEN, URINE AUTO 0.2 mg/dL (0.0-2.0); WBC, URINE AUTO TNTC /HPF (0-3)
[2024-02-26 13:45] LABS: BASO % 0.4 % (0.0-1.0); EOS # 0.3 10^3/uL (0.0-0.5); EOS % 2.4 % (0.0-3.0); HEMATOCRIT 36.7 % (36.0-47.0); LYMPH # 2.6 10^3/uL (1.5-5.0); LYMPH % 22.9 % (24.0-44.0); MEAN CORPUSCULAR HEMOGLOBIN 30.7 pg (27.0-33.0); MEAN CORPUSCULAR HGB CONC 32.7 g/dl (32.0-36.5); MEAN CORPUSCULAR VOLUME 93.9 fl (80.0-96.0); MONO # 0.9 10^3/uL (0.0-0.8); MONO % 8.2 % (2.0-8.0); NEUTROPHILS # 7.5 10^3/uL (1.5-8.5); NEUTROPHILS % 65.7 % (36.0-66.0); PLATELET COUNT, AUTOMATED 252 10^3/uL (150-450); RED BLOOD COUNT 3.91 10^6/uL (4.00-5.40); WHITE BLOOD COUNT 11.4 10^3/uL (4.0-10.0)
[2024-02-26 14:26] LABS: TOTAL 25(OH) VITAMIN D 105.8 NG/ML (20.0-100.0)
[2024-02-26 14:27] LABS: FREE T4 0.96 NG/DL (0.89-1.76)
[2024-02-26 14:33] LABS: ALBUMIN 3.8 G/DL (3.2-5.2); BILIRUBIN,TOTAL 0.4 MG/DL (0.3-1.2); CALCIUM LEVEL 9.5 MG/DL (8.3-10.6); CHOLESTEROL RISK RATIO 2.34 (<5); CREATININE FOR GFR 1.18 MG/DL (0.55-1.30); HDL CHOLESTEROL 50.8 MG/DL (>40); LDL CHOLESTEROL 34.2 MG/DL (<100); NON-HDL-C 68.2 MG/DL; TOTAL PROTEIN 6.9 G/DL (5.7-8.2)
[2024-02-26 19:00] LABS: HEMOGLOBIN A1c 8.3 % (4.0-6.0)
== END ==
LOC: M WUC 09:34
PROVIDERS: ATTEND Family Medicine
DX: I10 Essential (primary) hypertension (principal); E78.5 Hyperlipidemia, unspecified; E11.40 Type 2 diabetes mellitus with diabetic neuropathy, unspecified; M51.36 Other intervertebral disc degeneration, lumbar region; Z79.899 Other long term (current) drug therapy

== ENCOUNTER → 2024-06-22 | Outpatient (CLI) | payer MEDICARE, OTHER ==
[2024-06-22 14:47] LABS: BASO % 0.3 % (0.0-1.0); EOS # 0.2 10^3/uL (0.0-0.5); EOS % 1.8 % (0.0-3.0); HEMATOCRIT 37.6 % (36.0-47.0); HEMOGLOBIN 12.6 g/dl (12.0-15.5); LYMPH # 1.9 10^3/uL (1.5-5.0); LYMPH % 16.6 % (24.0-44.0); MEAN CORPUSCULAR HEMOGLOBIN 32.2 pg (27.0-33.0); MEAN CORPUSCULAR HGB CONC 33.5 g/dl (32.0-36.5); MEAN CORPUSCULAR VOLUME 96.2 fl (80.0-96.0); MONO # 0.9 10^3/uL (0.0-0.8); NEUTROPHILS # 8.2 10^3/uL (1.5-8.5); NEUTROPHILS % 72.7 % (36.0-66.0); PLATELET COUNT, AUTOMATED 229 10^3/uL (150-450); RED BLOOD COUNT 3.91 10^6/uL (4.00-5.40); WHITE BLOOD COUNT 11.2 10^3/uL (4.0-10.0)
[2024-06-22 15:27] LABS: TOTAL 25(OH) VITAMIN D 83.6 NG/ML (20.0-100.0); URIC ACID 7.1 MG/DL (3.1-7.8)
[2024-06-22 15:30] LABS: ALBUMIN 3.7 G/DL (3.2-5.2); BILIRUBIN,TOTAL 0.4 MG/DL (0.3-1.2); CHOLESTEROL RISK RATIO 2.55 (<5); CREATININE FOR GFR 1.28 MG/DL (0.55-1.30); GLOMERULAR FILTRATION RATE 42.8 (>39); HDL CHOLESTEROL 50.5 MG/DL (>40); LDL CHOLESTEROL 42.9 MG/DL (<100); NON-HDL-C 78.5 MG/DL; POTASSIUM SERUM 3.7 MMOL/L (3.5-5.1); TOTAL PROTEIN 6.8 G/DL (5.7-8.2)
== END ==
LOC: M WUC 09:56
PROVIDERS: ATTEND Family Medicine
DX: I10 Essential (primary) hypertension (principal); M51.36 Other intervertebral disc degeneration, lumbar region; E78.5 Hyperlipidemia, unspecified; Z79.899 Other long term (current) drug therapy

== ENCOUNTER → 2025-04-13 | Outpatient (REF) | payer MEDICARE, OTHER ==
[~2025-04-13] MED LIST changes: +AMLO-751 PO; -AMLO10TA PO
== END ==
LOC: M LAB REF 16:38
PROVIDERS: ATTEND Nurse Practitioner Adult Health
DX: G60.9 Hereditary and idiopathic neuropathy, unspecified (principal)

== ENCOUNTER 2025-09-17 21:16 | Inpatient (IN) | payer MEDICARE, OTHER ==
[~2025-09-17] VITALS: Ht 154.9 cm; Wt 83.6 kg
[~2025-09-17 21:16] MED LIST changes: -EZET10TA21 PO; +EZET10TA57 PO
[2025-09-17 23:31] LABS: BASO # 0.0 10^3/uL (0.0-0.2); BASO % 0.1 % (0.0-1.0); EOS # 0.1 10^3/uL (0.0-0.5); EOS % 0.9 % (0.0-3.0); LYMPH # 1.9 10^3/uL (1.5-5.0); LYMPH % 12.7 % (24.0-44.0); MONO # 0.9 10^3/uL (0.0-0.8); MONO % 6.4 % (2.0-8.0); NEUTROPHILS # 11.7 10^3/uL (1.5-8.5); NEUTROPHILS % 79.6 % (36.0-66.0); PLATELET COUNT, AUTOMATED 250 10^3/uL (150-450)
[2025-09-17 23:55] LABS: ALT/SGPT 43.0 U/L (7.0-40); AST/SGOT 24.0 U/L (<34); CALCIUM LEVEL 9.7 MG/DL (8.3-10.6); CARBON DIOXIDE LEVEL 28.0 MMOL/L (20-31); CHLORIDE LEVEL 98.0 MMOL/L (98-107); CK-MB VALUE MASS 3.8 NG/ML (<3.6); CPK CREATINE PHOSPHOKINASE 127.0 U/L (34-145); CREATININE FOR GFR 1.26 MG/DL (0.55-1.30); GLOMERULAR FILTRATION RATE 42.9 (>32); MB/CK RELATIVE INDEX 2.99 (< OR =4); POTASSIUM SERUM 3.1 MMOL/L (3.5-5.1); SODIUM LEVEL 139.0 MMOL/L (136-145)
[2025-09-18 02:14] LABS: CK-MB VALUE MASS 3.5 NG/ML (<3.6)
[2025-09-18 02:15] LABS: CPK CREATINE PHOSPHOKINASE 133.0 U/L (34-145); MB/CK RELATIVE INDEX 2.63 (< OR =4)
[2025-09-18 05:05] LABS: MAGNESIUM LEVEL 1.7 MG/DL (1.8-2.4)
[2025-09-18] MEDS: POTASSIUM CHLORIDE 10% LIQ 20MEQ/15ML UDC PO ONE (05:19)
[2025-09-18 05:21] LABS: KETONE, URINE AUTO RFX NEGATIVE (NEGATIVE); MUCUS, URINE RFX SMALL (NEGATIVE); NITRITE, URINE AUTO RFX NEGATIVE (NEGATIVE); RBC, URINE AUTO RFX 23 /HPF (0-3); SQUAM EPITHELIAL CELL UR AURFX 1 /HPF (0-6)
[2025-09-18 05:25] LABS: LEUKOCYTE ESTERASE UR AUTO RFX 2+ (NEGATIVE); WBC, URINE AUTO RFX TNTC /HPF (0-3)
[2025-09-18] MEDS ORDERED: LevoFLOXacin IV 750 MG in IV 1 EA IV ONE (07:00)
[2025-09-18] MEDS ORDERED: GLUCOSE 4 GM CHEW PO PRN ×2 (07:40→07:55)
[2025-09-18] MEDS ORDERED: GLUCAGON INJ 1 MG VIAL SC PRN ×2 (07:40→07:55)
[2025-09-18] MEDS ORDERED: cefTRIAXone SOD 1 GM in DEXTROSE 5% (D5W) ADV/MINI-BAG 50 ML IV SCH (07:40)
[2025-09-18] MEDS ORDERED: DEXTROSE 50% 50 ML SYRINGE IV PRN ×2 (07:40→07:55)
[2025-09-18 08:25] LABS: PLATELET COUNT, AUTOMATED 252 10^3/uL (150-450)
[2025-09-18 08:44] LABS: INR 1.01
[2025-09-18 08:59] LABS: ALT/SGPT 40.0 U/L (7.0-40); AST/SGOT 23.0 U/L (<34); CALCIUM LEVEL 9.5 MG/DL (8.3-10.6); CARBON DIOXIDE LEVEL 26.0 MMOL/L (20-31); CHLORIDE LEVEL 100.0 MMOL/L (98-107); CREATININE FOR GFR 1.23 MG/DL (0.55-1.30); GLOMERULAR FILTRATION RATE 44.2 (>32); MAGNESIUM LEVEL 1.8 MG/DL (1.8-2.4); POTASSIUM SERUM 3.6 MMOL/L (3.5-5.1); SODIUM LEVEL 139.0 MMOL/L (136-145)
[2025-09-18] MEDS ORDERED: DOCUSATE SODIUM 100 MG CAPSULE PO SCH (09:00)
[2025-09-18] MEDS ORDERED: MAGNESIUM OXIDE 400 MG TAB PO SCH (09:00)
[2025-09-18] MEDS ORDERED: CYANOCOBALAMIN 500 MCG TAB PO SCH (09:00)
[2025-09-18] MEDS ORDERED: POTASSIUM CHLORIDE 10MEQ SR TABLET PO SCH (09:00)
[2025-09-18] MEDS ORDERED: VITAMIN E 400 INTERNATIONAL UNITS CAP PO SCH (09:00)
[2025-09-18] MEDS ORDERED: FOLIC ACID 1 MG TAB PO SCH (09:00)
[2025-09-18] MEDS ORDERED: ASPIRIN 81 MG CHEWABLE TABLET PO SCH (09:00)
[2025-09-18] MEDS ORDERED: ISOSORBIDE DINITRATE 10 MG TAB PO SCH (09:00)
[2025-09-18] MEDS: NS (Normal Saline) 0.9% 1,000 ML IV ONE (10:20)
[2025-09-18] MEDS: MAG SULF 1GM/100ML (MAG RUN) 1 GM in IV 1 EA IV ONE (10:21)
[2025-09-18] MEDS ORDERED: JARD1TAB3 PO (10:52)
[2025-09-18] MEDS ORDERED: TRAM50TA2 PO (10:52)
[2025-09-18] MEDS ORDERED: CLON-412 PO (10:52)
[2025-09-18] MEDS ORDERED: LOSA25TA13 PO (10:52)
[2025-09-18] MEDS ORDERED: ISOS10TA3 PO (10:52)
[2025-09-18] MEDS ORDERED: LANTINJ4 SUBQ (10:52)
[2025-09-18] MEDS ORDERED: AMLO1TAB25 PO (10:52)
[2025-09-18] MEDS ORDERED: METF-838 PO (10:52)
[2025-09-18] MEDS ORDERED: VIBE75TA PO (10:52)
[2025-09-18] MEDS ORDERED: GABA-1172 PO (10:52)
[2025-09-18] MEDS ORDERED: HOME MED LIST COMPLETE! XX SCH (10:55)
[2025-09-18] MEDS: cefTRIAXone SOD 1 GM in DEXTROSE 5% (D5W) ADV/MINI-BAG 50 ML IV SCH (11:38)
[2025-09-18] MEDS: HEPARIN SOD 5000 UNITS/ML 1 ML VIAL/SYRINGE SC SCH (11:41)
[2025-09-18] MEDS ORDERED: INSULIN LISPRO (NovoLOG) PER UNIT SC SCH ×2 (12:00→21:00)
[2025-09-18 13:34] VITALS: BP 128/61; TEMP 97.3; O2SAT 95
[2025-09-18] MEDS: amLODIPine 10 MG TAB PO SCH (13:37)
[2025-09-18] MEDS: CYANOCOBALAMIN 500 MCG TAB PO SCH (13:37)
[2025-09-18] MEDS: FOLIC ACID 1 MG TAB PO SCH (13:37)
[2025-09-18] MEDS: ASPIRIN 81 MG ENTERIC TABLET PO SCH (13:38)
[2025-09-18] MEDS: LOSARTAN 25 MG TAB PO SCH (13:39)
[2025-09-18] MEDS: INSULIN LISPRO (NovoLOG) PER UNIT SC SCH ×2 (13:39→20:29)
[2025-09-18] MEDS: traMADol 50 MG TAB PO PRN (13:39)
[2025-09-18] MEDS: LanTUS (INSULIN GLARGINE INJ) 1 UNITS/0.01 ML SC SCH (13:43)
[2025-09-18] MEDS: GABAPENTIN 300 MG CAP PO SCH (15:02)
[2025-09-18] MEDS: ACETAMINOPHEN 325 MG TAB PO PRN (15:13)
[2025-09-18] MEDS: ISOSORBIDE DINITRATE 10 MG TAB PO SCH (15:14)
[2025-09-18] MEDS ORDERED: LOPERAMIDE 2 MG CAPLET PO PRN (18:20)
[2025-09-18 20:00] VITALS: BP 118/52; TEMP 98.7; O2SAT 96
[2025-09-19 03:20] VITALS: BP 121/51; TEMP 97.8; O2SAT 93
[2025-09-19 06:31] LABS: PLATELET COUNT, AUTOMATED 208 10^3/uL (150-450)
[2025-09-19 06:55] LABS: ALT/SGPT 28.0 U/L (7.0-40); AST/SGOT 18.0 U/L (<34); CALCIUM LEVEL 9.2 MG/DL (8.3-10.6); CARBON DIOXIDE LEVEL 27.0 MMOL/L (20-31); CHLORIDE LEVEL 104.0 MMOL/L (98-107); CREATININE FOR GFR 1.01 MG/DL (0.55-1.30); GLOMERULAR FILTRATION RATE 55.9 (>32); MAGNESIUM LEVEL 1.9 MG/DL (1.8-2.4); POTASSIUM SERUM 3.2 MMOL/L (3.5-5.1); SODIUM LEVEL 143.0 MMOL/L (136-145)
[2025-09-19] MEDS: FLUZONE HIGH DOSE (65+) 0.5 ML SYRINGE (25-26) IM.IMMUN ONE (08:38)
[2025-09-19] MEDS: GABAPENTIN 300 MG CAP PO ONE (08:49)
[2025-09-19] MEDS ORDERED: SPIRONOLACTONE 25 MG TAB PO SCH (09:00)
[2025-09-19] MEDS: POTASSIUM CHLORIDE 10MEQ SR TABLET PO SCH (09:48)
[2025-09-19 12:00] VITALS: BP 134/57; TEMP 97.3; O2SAT 95
[2025-09-19 12:27] VITALS: BP_SYST 123; BP_SYST 133; BP_SYST 134; BP_DIAS 55; BP_DIAS 57; BP_DIAS 85
[2025-09-19] MEDS: GABAPENTIN 300 MG CAP PO SCH (15:58)
[2025-09-19 20:59] VITALS: BP 127/50; TEMP 97.5; O2SAT 95
[2025-09-19] MEDS: NYSTATIN 100,000 UNITS/GM TOPICAL PWD 15 GM TOP SCH (21:12)
[2025-09-20 02:50] VITALS: BP 130/52; TEMP 97.5; O2SAT 95
[2025-09-20 06:14] VITALS: BP_SYST 116; BP_SYST 140; BP_DIAS 54; BP_DIAS 62; BP_DIAS 63
[2025-09-20 07:08] LABS: PLATELET COUNT, AUTOMATED 198 10^3/uL (150-450)
[2025-09-20 07:30] LABS: ALT/SGPT 25.0 U/L (7.0-40); AST/SGOT 14.0 U/L (<34); CALCIUM LEVEL 8.9 MG/DL (8.3-10.6); CARBON DIOXIDE LEVEL 26.0 MMOL/L (20-31); CHLORIDE LEVEL 109.0 MMOL/L (98-107); CREATININE FOR GFR 1.02 MG/DL (0.55-1.30); GLOMERULAR FILTRATION RATE 55.3 (>32); POTASSIUM SERUM 3.7 MMOL/L (3.5-5.1); SODIUM LEVEL 144.0 MMOL/L (136-145)
[2025-09-20] MEDS ORDERED: ISOVUE-370 76% 100 ML VIAL As Ordered ONE (09:31)
[2025-09-20 12:20] VITALS: BP 136/53; TEMP 97.9; O2SAT 95
[2025-09-20 19:49] VITALS: BP 136/64; TEMP 97.5; O2SAT 94
[2025-09-21 04:24] VITALS: BP 138/69; TEMP 97.3; O2SAT 96
[2025-09-21 06:29] VITALS: BP_SYST 121; BP_SYST 122; BP_SYST 123; BP_DIAS 51; BP_DIAS 55; BP_DIAS 58
[2025-09-21 07:25] LABS: PLATELET COUNT, AUTOMATED 202 10^3/uL (150-450)
[2025-09-21 08:05] LABS: ALT/SGPT 25.0 U/L (7.0-40); AST/SGOT 20.0 U/L (<34); CALCIUM LEVEL 9.1 MG/DL (8.3-10.6); CARBON DIOXIDE LEVEL 26.0 MMOL/L (20-31); CHLORIDE LEVEL 106.0 MMOL/L (98-107); CREATININE FOR GFR 0.89 MG/DL (0.55-1.30); GLOMERULAR FILTRATION RATE 65.1 (>32); POTASSIUM SERUM 4.1 MMOL/L (3.5-5.1); SODIUM LEVEL 142.0 MMOL/L (136-145)
[2025-09-21 08:19] VITALS: BP 128/49
[2025-09-21] MEDS ORDERED: NYST10006 TOP (10:55)
== END 2025-09-21 12:51 | disposition home or self-care (01) | DRG 312 ==
LOC: M ED 21:16 → M ED INP 09-18 07:58 → M MSPAV 09-18 13:11
PROVIDERS: ADMIT General Practice; ATTEND Internal Medicine Nephrology
DX: I95.1 Orthostatic hypotension (principal); I13.0 Hypertensive heart and chronic kidney disease with heart failure and stage 1 through stage 4 chronic kidney disease, or unspecified chronic kidney disease; I50.30 Unspecified diastolic (congestive) heart failure; I25.10 Atherosclerotic heart disease of native coronary artery without angina pectoris; E11.22 Type 2 diabetes mellitus with diabetic chronic kidney disease; E87.6 Hypokalemia; E11.51 Type 2 diabetes mellitus with diabetic peripheral angiopathy without gangrene; M81.0 Age-related osteoporosis without current pathological fracture; Z96.653 Presence of artificial knee joint, bilateral; E66.9 Obesity, unspecified; M48.061 Spinal stenosis, lumbar region without neurogenic claudication; R53.1 Weakness; R19.7 Diarrhea, unspecified; G89.29 Other chronic pain; E11.42 Type 2 diabetes mellitus with diabetic polyneuropathy; M15.9 Polyosteoarthritis, unspecified; E78.5 Hyperlipidemia, unspecified; N18.30 Chronic kidney disease, stage 3 unspecified; Z66 Do not resuscitate; Z79.899 Other long term (current) drug therapy; Z79.82 Long term (current) use of aspirin; Z88.0 Allergy status to penicillin; Z88.5 Allergy status to narcotic agent; Z88.8 Allergy status to other drugs, medicaments and biological substances